=== PATIENT | female | born 1930 | race Caucasian/White ===

== ENCOUNTER 2016-06-03 11:58 | Emergency (ER) | payer MEDICARE ==
[~2016-06-03] VITALS: Ht 170.2 cm; Wt 53.6 kg
[~2016-06-03 11:58] MED LIST: ASPI-973 PO; ESTR42.52 VG; FELO2.5T8 PO; HYDR-4003 PO; KETO120S3 TP; KTC2C15 TP; LEVO75TA4 PO; LOVA40TA PO; MIRT15TA6 PO; NADO20TA PO
[2016-06-03 12:02] VITALS: BP 129/48; PULSE 70; RESP 10; O2SAT 100
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
--- NOTE | 2016-06-03 12:47 | DRSVH ---
PROCEDURE: X-RAY LEFT FOOT COMPLETE, MINIMUM THREE VIEWS ([id number]) INDICATIONS: pain TECHNIQUE: 3 views of the foot were acquired. COMPARISON: None. FINDINGS: Bones: Diffuse osteopenia is present. No fractures or dislocations. No suspicious bony lesions. Soft tissues: No tibiotalar joint effusion. Achilles tendon appears normal. IMPRESSION: No acute fracture. No osseous lesion. If clinical suspicion and/or symptoms persist, fur ther assessment with repeat plainfilms, or advanced imaging (e.g., CT, MRI, or bone scan) may be help ful for further assessment. Dictated by: Sunita Vasquez M.D. on 06/03/2016 at 12:45 Approved by: Sunita Vasquez M.D. on 06/03/2016 at 12:45
[2016-06-03] MEDS ORDERED: NAPR220C16 PO ×2 (13:37→13:46)
[2016-06-03 13:53] VITALS: BP 112/61; PULSE 58; RESP 16; O2SAT 100
== END 2016-06-03 13:37 | disposition home or self-care (01) ==
LOC: SED 11:58
DX: M72.2 Plantar fascial fibromatosis (principal); I10 Essential (primary) hypertension; E78.5 Hyperlipidemia, unspecified; K21.9 Gastro-esophageal reflux disease without esophagitis; Z79.82 Long term (current) use of aspirin; Z88.2 Allergy status to sulfonamides; Z88.5 Allergy status to narcotic agent

== ENCOUNTER 2016-06-12 00:11 | Day surgery (SDC) | payer MEDICARE ==
[~2016-06-12] VITALS: Ht 167.6 cm; Wt 56.2 kg
[~2016-06-12 00:11] MED LIST changes: +NAPR220C16 PO
[2016-06-12] MEDS ORDERED: diphenhydrAMINE 25 mg Capsule PO PRN (08:00)
[2016-06-12] MEDS ORDERED: TACR100O2 TP (08:00)
[2016-06-12] MEDS ORDERED: FUR20 PO (08:00)
[2016-06-12] MEDS ORDERED: FLUT15.88 NS (08:00)
[2016-06-12] MEDS ORDERED: PROTOPIC 0.1% TOPICAL (08:02)
[2016-06-12] MEDS ORDERED: 0.9% Sodium Chloride 250 ML ONE ×2 (10:54→14:01)
[2016-06-12 11:15] VITALS: BP 110/55; PULSE 77; RESP 16
[2016-06-12 11:37] VITALS: BP 113/59; PULSE 70; RESP 16
[2016-06-12 14:21] VITALS: BP 101/51; PULSE 58; RESP 16
[2016-06-12 14:40] VITALS: BP 104/51; PULSE 57; RESP 16
[2016-06-12 16:50] VITALS: BP 107/55; PULSE 54; RESP 16
--- NOTE | 2016-06-12 19:33 | NUR ---
Medication Clarification/ Blood Transfusion: Patient slightly forgetful. When reviewing her home medication she stated that she recently had some stopped and wasn't sure if she was to continue with her Furosemide. She was recently seen in office by Dr. Armendariz. Dr. Armendariz's office called and spoke with his nurse JODY Davidson. New orders received to instruct patient to - continue her Furosemide until her swelling to her legs has stopped - Stop her Naproxen - See Dr. Armendariz in office on 06/15/16 - She will be contacted regarding a GI consult and labs that need to drawn prior to her appointment. Tolerated ordered 2 units of blood without incident. Ordered post H&H lab drawn. Stated understanding of discharge instructions. Discharged home in stable condition. Patient brought down to main entrance via wheelchair. She will drive herself home.
== END 2016-06-12 23:59 | disposition home or self-care (01) ==
LOC: MOCO 00:11
PROVIDERS: ATTEND Internal Medicine
DX: D50.9 Iron deficiency anemia, unspecified (principal); R06.09 Other forms of dyspnea; F32.9 Major depressive disorder, single episode, unspecified; Z79.82 Long term (current) use of aspirin; Z79.890 Hormone replacement therapy
CPT/HCPCS: 36415; 36430; 85014; 85018; 86922; J7050; P9021

== ENCOUNTER 2016-08-04 07:49 | Day surgery (SDC) | payer MEDICARE ==
[~2016-08-04] VITALS: Ht 167.6 cm; Wt 55.7 kg
[~2016-08-04 07:49] MED LIST changes: +FLUT15.88 NS; +FUR20 PO; +PROTOPIC 0.1% TOPICAL
[2016-08-04] MEDS ORDERED: diphenhydrAMINE 25 mg Capsule PO PRN (08:00)
[2016-08-04 10:25] VITALS: BP 113/64; PULSE 63; RESP 16
[2016-08-04 10:40] VITALS: BP 100/45; PULSE 61; RESP 16
[2016-08-04 13:15] VITALS: BP 119/60; PULSE 57; RESP 16
[2016-08-04 13:45] VITALS: BP 112/49; PULSE 56; RESP 16
[2016-08-04 16:19] VITALS: BP 132/62; PULSE 60; RESP 16
--- NOTE | 2016-08-04 17:53 | NUR ---
Transfusion Patient arrived to unit by wheelchair, pushed by security. IV initiated. Type and cross sent for 2 units. Premedicated as ordered. Both units transfused without adverse reaction. Patient ate all meals during transfusion, and requested to stay for dinner. Assisted to bathroom when needed. Will transport to private vehicle when finished eating. Addendum: 08/04/16 at 1820 by SARAH ALVARADO RN Transported by wheelchair to private vehicle with her belongings.
== END 2016-08-04 23:59 | disposition home or self-care (01) ==
LOC: MOCO 07:49
PROVIDERS: ATTEND Nurse Practitioner
DX: D50.9 Iron deficiency anemia, unspecified (principal)
CPT/HCPCS: 36415; 36430; 85014; 85018; 86922; J7050; P9021

== ENCOUNTER 2016-08-31 01:15 | Day surgery (SDC) | payer MEDICARE ==
[~2016-08-31] VITALS: Ht 170.2 cm; Wt 54.0 kg
[2016-08-31 08:37] VITALS: BP 121/49; PULSE 64; RESP 18; O2SAT 99
[2016-08-31] MEDS ORDERED: diphenhydrAMINE 25 mg Capsule PO ONE (09:00)
[2016-08-31 10:08] VITALS: BP 108/45; PULSE 64; RESP 18
[2016-08-31 12:21] VITALS: BP 107/51; PULSE 64; RESP 18
[2016-08-31 12:34] VITALS: BP 110/51; PULSE 70; RESP 18
[2016-08-31 15:10] VITALS: BP 117/58; PULSE 70; RESP 18
--- NOTE | 2016-08-31 15:33 | NUR ---
2 unit prbc pt premedicated with benadryl as ordered 2 units prbc infused over aprox 2.5hr each; pt tolerated well; vss; no adverse s/s post h/h = 10.2/32.4; results faxed to PCP pt escorted on/off unit with daughter
== END 2016-08-31 23:59 | disposition home or self-care (01) ==
LOC: MOCO 01:15
PROVIDERS: ATTEND Nurse Practitioner
DX: D50.0 Iron deficiency anemia secondary to blood loss (chronic) (principal)
CPT/HCPCS: 36415; 36430; 85014; 85018; 86922; J7050; P9021

== ENCOUNTER 2016-09-03 12:46 | Day surgery (SDC) | payer MEDICARE ==
[~2016-09-03] VITALS: Ht 170.2 cm; Wt 52.2 kg
[~2016-09-03 12:46] MED LIST changes: +0.9% Sodium Chloride 1,000 ML IV SCH; +Sodium Chloride LOK Flush 10 mL Syringe IV PRN; +fentaNYL-PF 50 mCg/mL 2 mL Inj IVPUSH PRN
[2016-09-03 13:15] VITALS: BP 129/67; PULSE 62; RESP 16; O2SAT 98
[2016-09-03] MEDS ORDERED: FERR-83 PO (13:20)
[2016-09-03 15:06] VITALS: BP 96/45; PULSE 67; RESP 14; O2SAT 100
[2016-09-03 15:17] VITALS: BP 103/50; PULSE 79; RESP 14; O2SAT 98
[2016-09-03 15:37] VITALS: BP 115/53; PULSE 58; RESP 12; O2SAT 98
[2016-09-03] MEDS ORDERED: 0.9% Sodium Chloride 1,000 ML IV ONE (15:59)
--- NOTE | 2016-09-03 20:46 | ENDO ---
[address] [address] ENDOSCOPY PROCEDURE PATIENT: CASSIE BRAY : 1930 MR#: [id number] ADMIT: 09/03/2016 JOB ID: [id number] PRIMARY PROVIDER: BECKY Bagley. PROCEDURE: Esophagogastroduodenoscopy with biopsy and a colonoscopy with biopsy and Lizette ink tattoo placement. INDICATIONS: An 86-year-old female with iron deficiency anemia. EQUIPMENT: GIF H 190. SEDATION: 1. 5 mg Versed. 2. 100 mcg fentanyl. COMPLICATIONS: None identified. BOWEL PREPARATION: Fair, adequate exam. PROCEDURE INFORMATION: After the risks and benefits were explained, written and verbal informed consent was obtained. The patient was brought into the endoscopy suite and placed into the left lateral decubitus position. Sedation was achieved using the above-stated medications with the addition of oxygen via nasal cannula. The scope was introduced into the mouth through the bite block and advanced to the second portion of the duodenum. The scope was slowly withdrawn to carefully examine the mucosa for any defects or lesions. Retroflexed views were accomplished in the stomach. The stomach was decompressed. The scope removed from the patient who tolerated the procedure well. The patient was then turned around. A digital rectal examination accomplished. No significant anorectal pathology appreciated. The scope was introduced into the rectum and advanced under direct visualization to approximately the hepatic flexure distal ascending colon. We encountered a circumferential ulcerated mass lesion. The scope was in essence hubbed to reach this level, and it did not appear as though I had the ability to advance beyond this lesion. It was biopsied, and the mucosa just distal to the lesion was tattooed with approximately 2 cc of Lizette ink. The scope was then slowly withdrawn to carefully examine the mucosa for any other defects or lesions. Multiple direct views were made through the dentate line. The colon was decompressed. The scope removed from the patient who tolerated the procedure well. FINDINGS: 1. Duodenum: No pathology appreciated from the bulb through to the second portion. A biopsy was taken in that we started with this examination to exclude the remote possibility of celiac. 2. Stomach: The patient had a mild diffuse gastropathy. No focal lesions. No ulcers or outlet obstruction. Biopsy from the stomach was taken for exclusion of Helicobacter or any other pathology. Retroflexed views of the LES were otherwise unremarkable. 3. Esophagus: The squamocolumnar junction correlated with the top of the gastric folds. The GEJ was at about 41 cm from the incisors. No acute erosive changes. No strictures. No mass lesions. 4. Colon: There was a circumferential ulcerated mass lesion in the distal ascending colon. I suspect we were quite close to the hepatic flexure. All of the endoscope was introduced in order to achieve this depth. We got three excellent bites for histopathology and placed a tattoo just distal to the lesion as described above. Otherwise, I did not appreciate any colonic pathology throughout. There was some diverticulosis in the left colon. Moderate internal hemorrhoids were noted on direct views. ENDOSCOPIC DIAGNOSES: 1. Mild gastropathy. 2. Otherwise visually unremarkable esophagogastroduodenoscopy. 3. Right colon mass lesion. 4. Diverticulosis. 5. Hemorrhoids. RECOMMENDATIONS: 1. CT scan is arranged. 2. CEA level is requested. 3. Surgery and oncology consultations are additionally requested.
--- NOTE | 2016-09-05 16:40 | PATH ---
SURGICAL PATHOLOGY Attending Physician:Liban Del Cid CASE STATUS: Signed Out PATIENT NAME: CASSIE BRAY PID: [id number] : 1930 DATE COLLECTED:09/03/2016 00:00 SPECIMEN: 1: Duodenum, Biopsy 2: Gastric, Biopsy 3: Colon, Biopsy CLINICAL HISTORY: 1. DUODENUM BX 2. GASTRIC BX 3. HEPATIC FLEXURE MASS BX FINAL DIAGNOSIS: 1.DUODENUM, BIOPSY: DUODENAL MUCOSA WITH NO DIAGNOSTIC ABNORMALITY. Negative for active inflammation, features of sprue, dysplasia, and malignancy. 2.GASTRIC BIOPSY: PORTIONS OF GASTRIC BODY-TYPE MUCOSA WITH CHRONIC GASTRITIS. No definite H. pylori organisms identified by H&E stain. Immunohistochemistry studies pending; results will be reported as an addendum. Negative for intestinal metaplasia, dysplasia, and malignancy. 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 IMMUNOHISTOCHEMISTRY STUDIES PENDING; RESULTS WILL BE REPORTED AN ADDENDUM. ICD10 NOTE: Part 3. This case was reviewed by my colleague, Dr. Shilpa Jon, who concurs with the above interpretation. Results regarding the hepatic flexure mass biopsy were communicated to Lenard Barker, on behalf of Dr. Sterling, at approximately 2:30 p.m. on 09-05-16. GROSS DESCRIPTION: The specimen is received in three formalin filled containers labeled with the patient's name. 1). The specimen is sublabeled "duodenum" and consists of a 0.3 x 0.3 x 0.3 CM portion of tissue which is entirely submitted in cassette 1A. 2). The specimen is sublabeled "gastric" and consists of a 0.2 x 0.2 x 0.1 CM portion of tissue which is entirely submitted in cassette 2A. 3). The specimen is sublabeled "hepatic flex mass" and consists of 2 portions of tissue which aggregate to 0.3 x 0.2 x 0.2 CM. The specimen is entirely submitted in cassette 3A. 09/04/[address] [facility] MICRO DESCRIPTION: See diagnosis. ICD-9 CODES: CPT CODES: 1: 53867 2: 32613, 56161 3: 01560, 42407, 38469, 48843, 25708, 23751 PROCEDURE/ADDENDA: Immunohistochemistry SPI Interpretation {Not Entered} Results-Comments This is an addendum to report the results of immunohistochemistry. 2.GASTRIC, BIOPSY:NEGATIVE FOR HELICOBACTER ORGANISMS BY IMMUNOHISTOCHEMISTRY. A control stain showed appropriate reactivity. 3.HEPATIC FLEXURE MASS, BIOPSY:Immunohistochemical stains were performed for mismatch repair protein expression evaluation and immunophenotype. A control stain showed appropriate reactivity. RESULTS: Synaptophysin: Negative Chromogranin: Negative Calretinin: Variable nuclear and cytoplasmic reactivity. MLH1: Loss of nuclear expression. MSH2: Intact nuclear expression. MSH6: Intact nuclear expression. PMS2: Loss of nuclear expression. Background nonneoplastic tissue/internal control with intact nuclear expression. 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 Loss of nuclear expression of MLH1 and PMS2: testing for BRAF gene mutation will be performed and the results reported as an addendum. (The presence of a BRAF V600E mutation and/or MLH1 methylation suggests that the tumor is sporadic and germline evaluation is probably not indicated; absence of both MLH1 methylation and of BRAF V600E mutation suggests the possibility of Harris syndrome, and sequencing and/or large deletion/duplication testing of germline MLH1 may be indicated)* * There are exceptions to the above IHC interpretations. These results should not be considered in isolation, and clinical correlation with genetic counseling is recommended to assess the need for germline testing. * This test was developed and its performance characteristics determined by youwho. It has not been cleared or approved by the U.S. Food and Drug Administration. The FDA has determined that such clearance or approval is not necessary. This test is used for clinical purposes. It should not be regarded as investigational or for research. Electronically Signed Out Shilpa Jon MD Electronically Signed Out Karina Jones MD [facility] [address], [place] [address] Technical component performed at [facility], [address], [place], [address]
== END 2016-09-03 23:59 | disposition home or self-care (01) ==
LOC: END 12:46
PROVIDERS: ATTEND Internal Medicine Gastroenterology
DX: C18.9 Malignant neoplasm of colon, unspecified (principal); K57.30 Diverticulosis of large intestine without perforation or abscess without bleeding; K64.8 Other hemorrhoids; K29.50 Unspecified chronic gastritis without bleeding; D50.0 Iron deficiency anemia secondary to blood loss (chronic); F32.9 Major depressive disorder, single episode, unspecified; Z79.82 Long term (current) use of aspirin; Z79.890 Hormone replacement therapy
CPT/HCPCS: 36415; 43239; 45380; 45381; 82378; 82565; 84520; 99153; G0500; J2250; J3010; J7030

== ENCOUNTER 2016-09-12 11:10 | Inpatient (IN) | payer MEDICARE ==
[2016-09-12] VITALS (8 sets, daily range): BP systolic 140–155; BP diastolic 48–75; PULSE 53–68; RESP 14–17; O2SAT 97–100
[~2016-09-12] VITALS: Ht 170.2 cm; Wt 54.0 kg
[2016-09-12] MEDS: Lactated Ringer's 1,000 ML IV SCH ×3 (05:00→13:05)
[~2016-09-12 11:10] MED LIST changes: -0.9% Sodium Chloride 1,000 ML IV SCH; +Bupivacaine Liposome 1.3% 20 mL Inj INFILTRATE ONE; +Cefotetan Inj 2,000 MG in IV Premix 1 EACH IV ONE; +FERR-83 PO; -FLUT15.88 NS; -NAPR220C16 PO; -Sodium Chloride LOK Flush 10 mL Syringe IV PRN; -fentaNYL-PF 50 mCg/mL 2 mL Inj IVPUSH PRN
[2016-09-12] MEDS ORDERED: Bupivacaine-MPF 0.5% 30 mL Inj INFILTRATE ONE (13:45)
[2016-09-12] MEDS ORDERED: Bupivacaine Liposome 1.3% 20 mL Inj ONE (13:52)
[2016-09-12] MEDS ORDERED: Lactated Ringer's 1,000 ML IV SCH (15:36)
[2016-09-12] MEDS ORDERED: Lactated Ringer's 500 ML IV PRN (15:36)
--- NOTE | 2016-09-12 15:36 | PCM.HPANE ---
Patient Data Surgeon Admitting Provider: Attending Provider:Raymond Desai MD Primary Care Physician:Zoe Sheth Other Provider:Laz Dover Anesthesia Reason for Visit Right Colon Cancer, Liver Mass Ht/WT & BMI Height (Feet): 5 Height (Inches): 7 Weight (Kilograms): 54.02 Body Mass Index 18.00 Allergies Coded Allergies: albuterol (Verified Allergy, Severe, Headache, 08/04/16) Sulfa (Sulfonamide Antibiotics) (Verified Allergy, Mild, 08/04/16) lisinopril (Verified Allergy, Mild, 08/04/16) Past Anesthesia History Anesthesia History: Denies:: Abnormal Airway, Anesthesia Reactions, Difficult Intubation, Fam Anesthesia Reaction, Fam Malignant Hypertherm, Malignant Hyperthermia Diabetes History Hx Diabetes?: No MRSA MRSA: Yes (6 MONTHS AGO, IN one nostril) Medications Blood Thinner: Aspirin Hypertension Medication: No Home Meds Incl Beta Adithya: Yes (nadolol for "head pressure") Active Scripts Hydrocodone-Acetaminophen 5-325 mg 1 Each Tablet1-2 Tablet PO QID PRN For Pain # 4 TABLET Prov:Geraldo Mitchell S DO 09/07/15 Reported Medications Ferrous Sulfate 325 Mg [id number] Mg PO BID 30 Days Ref 0 09/03/16 [Protopic Oint 0.1%] No Conflict Check1 Topical Bid 06/12/16 Furosemide 20 Mg Tab20 Mg PO DAILY 30 Days Ref 0 06/12/16 Mirtazapine 15 Mg [id number] Mg PO HS Ref 0 03/24/15 Lovastatin 40 Mg Lvounn56 Mg PO QDWEVENING MEAL #30 TABLET Ref 0 10/20/14 Levothyroxine 75 Mcg [id number] Mcg PO DAILY Ref 0 10/20/14 Ketoconazole 15 Gm Cream..g.15 Gm TP DAILY 10/20/14 Aspirin 81 Mg [id number] Mg PO DAILY Ref 0 10/20/14 Nadolol 20 Mg [id number] Mg PO HS 30 Days Ref 0 08/03/14 Nadolol 20 Mg [id number] Mg PO QAM 30 Days Ref 0 08/03/14 Estradiol (Estrace)42.5 Gm Cream.appl1 G VG SATURDAY #1 TUBE Ref 0 INSERT 1 GRAM VAGINALLY TWICE A WEEK 08/03/14 Ketoconazole 120 Ml [id number] Ml TP DAILY PRN prn APPLY TOPICALLY EVERY DAY TO AFFECED AREA(S). 08/03/14 Felodipine ER 2.5 Mg Tab.er.24h2.5 Mg PO DAILY 30 Days Ref 0 08/19/13 History History of ENT Problems?: Yes HEENT History: Positive for:: Cataracts (bilateral surgery) Dysphagia (sometimes have to swallow more than once ) Sinus Problem Denies:: Abnormal Airway Difficult Intubation Glaucoma Hearing Problem Denture Type: Full- Upper Teeth Condition: Tooth Decay Inflamed Gums Hx of Heart Problems?: Yes Cardiovascular History: Denies:: AICD Atrial Fibrillation Chest Pain Congestive Heart Failure Hypertension Irregular Heartbeat Pacemaker Peripheral Vascular Valvular Heart Disease (echo 06/2016- ef 55-60%) Other Cardiac History: past hx of leukopenia and thrombocytopenia. Hx of Respiratory Problem?: Yes Respiratory History: Positive for:: Cough Dyspnea (sob on exertion- can not walk flight of stairs- can walk flat ) Pneumonia (hx of) Denies:: Asthma Emphysema Hemoptysis Oxygen Administration Pulmonary Embolism Tuberculosis Use of C-PAP Machine Use of Inhalers / NEBS (could not tolerate nebulizer- ) Other Resp Pertinent History: hx of pulmonary infiltrates- being monitored Hx Neurologic Problems?: Yes Neurological History: Positive for:: Dementia (some memory issues) Dizziness (due to the anemia) Headaches ("pounding in head all the time") Denies:: CVA Multiple Sclerosis Parkinson's Disease Seizures Hx of GI Problems?: Yes Other GI Pertinent History: colon mass at hepatic flexure current admission problem Hx of Problems?: Yes Genitourinary History: Denies:: Kidney Stones Urinary Tract Infection Other Pertinent History: has hx of fecal incontinence- "sticky" unaware that she is having this, some urinary leakage as well. Female Hx: Positive for:: Problems with Breasts? Denies:: Currently (hysterectomy) Skin History: Denies:: History Skin Disorders? Pressure Ulcers Hx Musculoskeletal Problems?: Yes Musculoskeletal History: Positive for:: Degenerative Joint Musculoskeletal Trauma (HX RT SHOULDER IMPINGEMENT) Denies:: Back Injury Fibromyalgia Joint Replacement Myasthenia Gravis Osteoarthritis Rheumatoid Arthritis Systemic Lupus Hx of Psycho/Social Problems?: Yes Psycho Social History: Positive for:: Anxiety Hx Depression Hx Surgeries?: Yes (BLADDER,HYESTERECTOMY,GALLBADDER) Hx Any Other Health Problems?: Yes Other History: Positive for:: Cancer (colon current admission problem) Thyroid Disease (on medication) Denies:: Endocrine Disease Hospitalization History Blood Transfusions: Positive for:: Accept Blood Products? Blood Transfusions (last blood transfusion here end of august) Denies:: Blood Transfuse Reaction Hx Diabetes: No Hx Alcohol Use: NoHx Substance Use: No Smoking Status: Never Smoker Have You Smoked inLast 12 mo: No Stop/Bang P-Blood Pressure: treated: No B- Body Mass Index > 35 kg/m2: No A- Age over 50: Yes N- Neck Large Circumference: No G- Gender Male: No Risk Assessment Category Category 1A: Patient has history of documented sleep apnea, and HAS NOT received any narcotic, sedative or anesthesia administration during this stay. Category 1B: Patient has history of documented sleep apnea, and HAS received any narcotic , sedative or anesthesia administration during this stay Category 2: Patient has SUSPECTED Obstructive Sleep Apnea, and HAS received any narcotic , sedative or anesthesia administration during this stay. Category 3: Patient has SUSPECTED Obstructive Sleep Apnea and HAS NOT received narcotic, sedative or anesthesia administration during this stay. Category 4: Outpatient in Procedural Areas with known sleep apnea or who screen positive for High Risk via the STOP/BANG questionnaire. Exam Exam General Appearance: Alert, Oriented X3, Cooperative, No Acute Distress HEENT/AIRWAY: MP 2 Lungs: Clear to Auscultation Heart: Exam Unremarkable Plan Impression Patient chart reviewed, patient interviewed and anesthestic plan with risks, benefits, and alternatives discussed, and informed consent obtained. ASA Physical Status: ASA3 Severe Disease (severe anemia requiring transfusion) Anesthetic Plan: GA Bene/Risks/Altern/Consents: Yes HP Complete Prior to Induction: Yes Luiz Humphrey MD Sep 12, 2016 11:19
[2016-09-12] MEDS ORDERED: fentaNYL-PF 50 mCg/mL 2 mL Inj IVPUSH PRN (15:40)
[2016-09-12] MEDS ORDERED: EPHEDrine Sulfate 50 mg/mL Inj IVPUSH PRN (15:40)
[2016-09-12] MEDS ORDERED: HYDROmorphone 1 mg/mL Inj IVPUSH PRN (15:40)
[2016-09-12] MEDS ORDERED: MetoCLOpramide 5 mg/mL 2 mL Inj IVPUSH PRN ×2 (15:40→16:30)
[2016-09-12] MEDS ORDERED: Phenylephrine 10,000 mCg/mL Inj IVPUSH PRN (15:40)
[2016-09-12] MEDS ORDERED: Dexamethasone 4 mg/mL Inj IVPUSH PRN (15:40)
[2016-09-12] MEDS ORDERED: Ondansetron 2 mg/mL 2 mL Inj IVPUSH PRN ×2 (15:40→16:30)
--- NOTE | 2016-09-12 16:14 | PCM.SURGOP ---
Surgical Operative Report Date of Service: Sep 12, 2016 Pre Operative Diagnosis Right colon cancer, liver lesion Post Operative Diagnosis Same Procedure: Laparoscopic right hemicolectomy with anastomosis, laparoscopic liver biopsy Surgeon and Pet Crematory Worker: Surgeon: Raymond Desai MD Assistants: Rajendra Hernandez MD PGY-3 Indication for Procedure 86-year-old woman who has had fairly severe iron deficiency anemia, and has required 6 units of packed red blood cells of the past several months. She underwent colonoscopy by Dr. Sterling, which demonstrated a nearly obstructing friable lesion in the ascending colon, which could not be traversed with the colonoscope. 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 She had a CT of the chest, abdomen and pelvis which demonstrated a small indeterminate hypodensity in the left hepatic lobe, thickening of the ascending colon near the cecum, with probable lymph node positivity in the mesocolon. She underwent preoperative nutritional supplementation according to the [facility] protocol. She did not undergo bowel preparation. Her preoperative albumin was 3.5. After discussion of risks and benefits, she agreed to proceed with laparoscopic right hemicolectomy and liver biopsy. Findings: The liver lesion did not look like metastasis, as there was a broad flat slightly irregular density on the capsule of the liver. There was what appeared to be a positive lymph node along the ileocolic artery, which was resected. Procedure Details After smooth induction of general endotracheal anesthesia, she was placed in the supine position with both arms tucked. A Sanchez catheter was placed. She was prepped and draped in wide sterile fashion. A procedural pause was performed according to the SCOAP checklist, and all were found to be in agreement. A curvilinear infraumbilical incision was made. Dissection was carried down until the midline fascia was incised vertically and the perineal cavity was entered without difficulty. A June trocar was placed and pneumoperitoneum was established. Inspection revealed no evidence of carcinomatosis. The liver had a visible abnormality on the capsule of the left hepatic lobe, but this lesion was fairly broad and flat, and did not look like a typical metastasis. 5 mm ports were placed under visualization, one in the midline above the symphysis pubis, and another in the left upper quadrant. The right colon was retracted and the tumor as well as the Lizette ink tattoo were visualized. There was an abnormal lymph node in the right colon mesentery. Using the LigaSure, the hepatic flexure of the colon was taken down.once this was done, the cecum was elevated until the ileocolic vascular arcade was identified. The peritoneum was incised. The ileocolic artery and vein were able to be . Using 5 mm hemoclips, the artery and vein were doubly clipped and divided. This was done at the root of the mesentery, and there was an abnormal lymph node along the ileocolic artery which was included with the specimen. The remainder of the dissection was done from lateral to medial. Dissection was continued along the right white line of Toldt. The right ureter was visualized and easily preserved. The right colon was mobilized medially until the ileocolic mesenteric dissection was reached. The mesentery was skeletonized up to the terminal ileum approximately 10 cm from the ileocecal valve. Mesenteric dissection was continued distally until the proximal transverse colon, just adjacent to the middle colic vessels, which were visualized and preserved. The colon was ready to be exteriorized for transection and anastomosis. Prior to doing that, laparoscopic liver biopsy was performed. Using Metzenbaum scissors, a 3-4 mm segment of the capsular abnormality along the left hepatic lobe was sharply dissected off. This was sent for permanent pathology. Hemostasis was achieved on the liver using electrocautery. A 6 cm transverse incision was made at the level of the umbilicus in the right abdomen. The peritoneal cavity was entered under laparoscopic visualization. A wound protector was placed. The right colon was exteriorized through that incision. A EZ 75 mm stapler with a blue load was used to transect the terminal ileum, 10 cm from the ileocecal valve. Similarly , a EZ 75 mm stapler with blue load was used to transect the proximal transverse colon. The right colon was sent for permanent pathology. A side-to- side, functional end-to-end stapled anastomosis was performed. This was done with another firing of the EZ 75 mm stapler with a blue load along the antimesenteric aspect of the transverse colon and terminal ileum. The enterotomies were closed with a firing of the TA 30 mm stapler with a blue load. 3-0 silk Lembert sutures were used to oversew the staple lines, and to reinforce the crotch of the anastomosis. The mesenteric defect was wide, and was not closed. The anastomosis was evaluated by milking gas and enteric contents across the anastomosis, without evidence of leak. The anastomosis was returned to the peritoneal cavity. The wound protector was removed, and gloves and instruments were changed. The fascia of the right transverse incision was closed using running looped 0 PDS sutures 4, 2 sutures on the posterior rectus sheath and transversus abdominis muscle, and 2 sutures on the anterior rectus sheath and external oblique muscle. Under laparoscopic visualization, the anastomosis was inspected, there was no intra-abdominal bleeding, and the liver biopsy site was hemostatic. The 5 mm ports were removed under visualization. The fascia of the umbilical port site was closed using an 0 Vicryl suture in a [id number]. The skin incisions were closed using running 4-0 Monocryl subcuticular stitches. Dermabond was applied as a dressing. At the end of the case all needle and sponge counts were correct 2. The patient was awakened from anesthesia without difficulty, and taken to the recovery room in satisfactory condition, having tolerated the procedure well. Complications There were no periprocedural complications identified. Surgical Specimen Removed: Yes Specimen sent to Pathology: Yes Surgical Specimen description: Right colon. Liver biopsy. Anesthetic Plan: GA Grafts, Implants: None Output, Estimated Blood Loss: 20 Blood Administration during barragan: No Drains: None Catheters: Urethral 2 Way Sanchez copies to: Zoe Sheth; Jack Sterling MD, Joshua D MD Sep 12, 2016 16:13
[2016-09-12] MEDS ORDERED: Heparin 5,000 Unit/mL Inj SUBQ SCH (16:30)
--- NOTE | 2016-09-12 16:43 | PCM.ANEP1 ---
Post Anesthesia PACU Phase 1 Assessment Vital Signs Vital Signs Date Time Temp Pulse Resp B/P Pulse Ox O2 Delivery O2 Flow Rate FiO2 09/12/16 16:36 55 14 141/48 97 Room Air 09/12/16 16:25 55 15 150/51 98 Room Air 09/12/16 16:21 36.5 53 15 155/56 100 Room Air 09/12/16 12:29 36.2 68 16 140/63 97 Room Air Level of Alertness: Sleepy, easy to arouse CLAROS's with Equal Strength: Yes Pain: No Nausea or Vomiting: No CV Function & Hydration Stable: Yes Airway Device: Oxygen Delivery: Room Air Lungs: Clear to Auscultation Dermatome Level: Full Sensation PACU Phase 2 Assessment Complications: No Patient Instructions Provided: N/A Luiz Humphrey MD Sep 12, 2016 16:43
[2016-09-12 17:08] LABS: APPEARANCE,URINE CLEAR (CLEAR,HAZY); COLOR,URINE YELLOW (YELLOW); OCCULT BLOOD,URINE NEGATIVE (NEGATIVE); PH,URINE 5.5 (5.0-8.0); UROBILINOGEN,URINE NORMAL (NORMAL)
[2016-09-12 17:27] LABS: BASOPHILS % (AUTO) 0.2 % (0-3); EOSINOPHILS % (AUTO) 0.3 % (0-5); MONOCYTES % (AUTO) 11.1 % (4-12); Mean Corpuscular Hemoglobin 26.7 pg (27.0-35.0); Mean Corpuscular Volume 87.5 fL (81-100); NEUTROPHILS % (AUTO) 77.8 % (40-74); Platelet Count 126 bil/L (150-400)
[2016-09-12] MEDS ORDERED: Dexamethasone 4 mg/mL Inj ONE (17:28)
[2016-09-12] MEDS ORDERED: Propofol 10,000 mCg/mL 20 mL Inj ONE (17:28)
[2016-09-12] MEDS ORDERED: fentaNYL-PF 50 mCg/mL 2 mL Inj ONE (17:28)
[2016-09-12] MEDS ORDERED: EPHEDrine/NS 5 mg/mL 5 mL Syringe ONE (17:28)
[2016-09-12] MEDS ORDERED: Ondansetron 2 mg/mL 2 mL Inj ONE (17:28)
[2016-09-12] MEDS ORDERED: Phenylephrine/NS-PF 100 mCg/mL 5 mL Syringe IVPUSH ONE (17:28)
[2016-09-12] MEDS ORDERED: Rocuronium 10 mg/mL 5 mL Inj ONE (17:28)
[2016-09-12] MEDS: Dextrose 5% Lactated Ringer's 1,000 ML IV SCH (18:07)
[2016-09-12] MEDS: HYDROmorphone 0.5 mg/0.5 mL iSecure Syringe IVPUSH PRN ×2 (18:38→19:29)
--- NOTE | 2016-09-12 18:52 | NUR ---
Arrival to Floor Patient arrives to floor from PACU with SCDs in place. High flow oxygen applied to patient per orders, ordered IV fluids hung. Patient denies pain, surgical sites well approximated, cantu catheter draining to gravity. Patient somewhat slow to answer questions but able to respond. Care is ongoing.
[2016-09-12] MEDS ORDERED: PROTOPIC 0.1% TOPICAL PRN (19:35)
[2016-09-12] MEDS: Acetaminophen IV 1,000 MG in IV Premix 1 EACH IV SCH (21:27)
[2016-09-13] VITALS (8 sets, daily range): BP systolic 102–132; BP diastolic 48–61; PULSE 49–64; RESP 16–18; O2SAT 97–100
[2016-09-13] MEDS: Heparin 5,000 Unit/mL Inj SUBQ SCH ×3 (00:22→16:03)
[2016-09-13] MEDS: Acetaminophen IV 1,000 MG in IV Premix 1 EACH IV SCH ×4 (02:15→21:30)
--- NOTE | 2016-09-13 05:27 | NUR ---
Pain Pt reports 8/10 surgical pain at beginning of shift, 1mg IV Dilaudid given x1 with good results, besides scheduled IV Tylenol no further pain meds given and pt denies any pain. BT present.
[2016-09-13 05:31] LABS: BASOPHILS % (AUTO) 0.1 % (0-3); EOSINOPHILS % (AUTO) 0 % (0-5); MONOCYTES % (AUTO) 27.5 % (4-12); Mean Corpuscular Hemoglobin 26.6 pg (27.0-35.0); Mean Corpuscular Volume 88.5 fL (81-100); NEUTROPHILS % (AUTO) 68.4 % (40-74); Platelet Count 127 bil/L (150-400)
[2016-09-13] MEDS: FELODIPINE 2.5 MG PO SCH (08:37)
[2016-09-13] MEDS: Dextrose 5% Lactated Ringer's 1,000 ML IV SCH (09:08)
--- NOTE | 2016-09-13 09:08 | NUR ---
NUTRITION ASSESSMENT: ASSESS:86 YO female admitted following laparoscopic right hemicolectomy and liver biopsy. Patient with fairly severe iron deficiency anemia and has required 6 units of packed red blood cells of the past several months. She underwent colonoscopy, which demonstrated a nearly obstructing friable lesion in the ascending colon, which could not be traversed with the colonoscope. 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 She had a CT of the chest, abdomen and pelvis which demonstrated a small indeterminate hypodensity in the left hepatic lobe, thickening of the ascending colon near the cecum, with probable lymph node positivity in the mesocolon. She underwent preoperative nutritional supplementation according to the [facility] protocol. This morning, she is doing well, reporting minimal pain, no nausea. Diet has been advanced to full liquids, with Impact Advanced Recovery supplement added to all trays. PMHx:Leukopenia, thrombocytopenia, memory problems, dysphagia, MRSA, hypothyroid, pulmonary infiltrates. DIET:Full liquids, including Impact Advanced Recovery supplement, per [facility] protocol. LABS: Reviewed. Cr 0.52, Glu 159, Ca 8.0. MEDICATIONS: Reviewed. MiraLax, Synthroid, Remeron. NUTRITION FOCUSED PHYSICAL ASSESSMENT: GI symptoms / stool: No BM reported.Dav: 17. Skin Integrity: Skin is very pale, some lower extremity edema noted. ANTHROPOMETRICS: Current Wt: 53.5 kgBMI: 18.5 kg/m2.Admit weight: 54.02 kg. IBW: 61.4 kg (87.2% IBW) ESTIMATED NEEDS (GI SURGERY, UNDERWEIGHT): Calories: 1605 - 1873 kcal (30 - 35 kcal / kg BW) Protein: 64 - 80 g protein (1.2 - 1.5 g / kg BW) NUTRITION DIAGNOSIS: 1)Increased nutrient needs related to GI surgery, as evidenced by SCOAP protocol in place with supplementation of Impact Advanced Recovery. INTERVENTION: 1) Continue Impact Advanced Recovery all trays. MONITOR/EVALUATE: Diet advance / tolerance, PO intake, labs, GI/nutrition status. Follow up per moderate nutrition risk guidelines.
--- NOTE | 2016-09-13 11:59 | PCM.PNSURG ---
Subjective Date of Service: Sep 13, 2016 Visit Information: Reason for Visit Right Colon Cancer, Liver Mass Surgery/Surgery Date Post-Op Day # Date of Admission: Sep 12, 2016 at 17:27 Hospital Day # Subjective: No acute overnight events Patient reports abdomen is sore, but overall she has minimal pain Denies nausea or vomiting Does not yet feel hungry Did not ambulate yesterday Slept well. Objective Vital Sign- Last 8 Hours Date Time Temp Pulse Resp B/P Pulse Ox O2 Delivery O2 Flow Rate FiO2 09/13/16 08:45 Supplement Oxygen 09/13/16 08:39 60 09/13/16 08:30 36.5 49 18 116/61 100 Nasal Cannula 2.00 09/13/16 06:06 36.5 62 18 121/58 97 Nasal Cannula 2.00 Intake and Output- Last 8 Hour 09/13/16 Cumulative From/Thru 07:00 09/07/16 09:34 - 09/13/16 06:04 Intake Total 832 ml 1882 ml Output Total 800 ml 1190 ml Balance 32 ml 692 ml Intake Oral 50 ml 50 ml IV Total 782 ml 1832 ml Output Urine Total 800 ml 1150 ml Estimated Blood Loss 40 ml # Bowel Movements 0 0 General: Alert, Cooperative, No Acute Distress Lungs: Normal Air Movement Abdomen: Soft, Appropriately tender, Non-distended, Other (Lap trocar sites x3 c/d/i. R mid abdomen incision c/d/i. Dressed with dermabond. ) Neuro: Grossly Neurologically Intact Result Diagram: 09/13/16 0440 09/13/16 0440 Assessment & Plan Impression POD#1 s/p laparoscopic right hemicolectomy. No issues in the immediate post- operative setting. Problems: Plan Neuro: Continue IV APAP today, oxycodone PRN PO. HM IV for breakthrough CV/Pulm: Encourage inspiratory spirometry. Home ASA, statin, felodipine, and nadolol. Holding lasix for now. GI: Full liquid diet until ROBF. Daily bowel regimen with miralax. Renal: Trial of void today. Heme/ID: No need for antibiosis. Increase in WBC likely post-op inflammatory response. Endo: Home levothyroxine Activity: Ambulate in halls TID, please. PT/OT consult if needed. Prophylaxis: SQH. Dispo: Floor. Dread Hernandez MD Sep 13, 2016 11:59
[2016-09-13] MEDS: Polyethylene Glycol (PEG) 17 Gm Powder PO SCH (12:19)
[2016-09-13] MEDS ORDERED: Glucose 40% Oral Gel 15 Gm Tube PO PRN (12:35)
--- NOTE | 2016-09-13 13:46 | NUR ---
Spiritual care: routine pt declined routine offering of synagogue visitor, but was appreciative of spiritual care support as she reflects on diagnosis (what is known and what is still unknown, as she put it) and her approach to care. She shared that her son had bowel surgery with complications 4 years ago, she reflected about how this experience may shape her approach to care and treatment. Pt is "not practicing now" synagogue and expressed satisfaction in her care at [facility]. She described her coping with hospital stay--managing pain, waiting for news and dealing with different tv channels/remote systems. spiritual care to follow as needed.
--- NOTE | 2016-09-13 14:03 | NUR ---
Social Work- Multi-Disciplinary Rounds/ Initial Assessment Data: See Initial Assessment. Pt is 86 year old female admitted 09/12/16 for right colon cancer, liver mass per H&P. Pt's insurance is [facility]. Pt's PCP is BECKY Bagley. Pt's NOK/DPOA is Lucrecia Fuchs, . Pt's readmit risk score is 5 high risk. Surgery is primary on this pt. Per rounds with improvement lead and UR RN pt is POD 1 chandra colectomy. SW met with pt at bedside regarding discharge plan. SW role explained. Pt alert and oriented x3. Pt resides in Independent Living at [facility] where she is independent at baseline. Pt uses no DME and continues to drive. Pt's capacity for self care was assessed. Pt receives meals at [facility] but she also has food in her room to cook and often cooks breakfast for herself independently. Pt drives herself to get her groceries and to her doctors appointments. [facility] provides housekeeping for pt as well but she also cleans her own apartment. Pt moved into her apartment with assistance from her family. Pt's daughter Lucrecia is DPOA and designated support person. Pt provided verbal consent for INSTITUTE DIRECTOR to talk to Lucrecia. Lucrecia assists pt with logistical efforts such as selling her old home. Lucrecia also provides pt's weekly medications in a weekly pill organizer. Pt identifies Lucrecia and her two other children as an excellent support for herself. Based on the above, pt demonstrates good capacity for self care at this time. Pt has no HH history and no SNF history. Pt has no LTC or VA benefits. SW provided pt with business card and Discharge Planning Checklist. Instructed pt to contact INSTITUTE DIRECTOR by the phone number on the card or whiteboard if INSTITUTE DIRECTOR has needs that are identified in the booklet. Pt agreeable. Pt anticipated to discharge home to [facility] with her daughter to transport via POV pending clinical course. At this time, no SW needs have been ordered. SW will continue to follow. Assessment: Pt who is independent at baseline. Plan: Pt is POD 1. Pt anticipated to discharge home to [facility] with her daughter to transport via POV pending clinical course. At this time, no SW needs have been ordered. SW will continue to follow. ADAM Baum Addendum: 09/13/16 at 1414 by MARTIN LOZANO Amended: Links added.
[2016-09-13] MEDS: Insulin LISPRO 300 Unit/3 mL Inj SUBQ SCH ×3 (14:11→21:09)
--- NOTE | 2016-09-13 16:31 | NUR ---
Blood Glucose Pt FBS prior to lunch was 187. MD notified, order for one time dose of 2 units Lispro. FBS rechecked at 1610 found to be 104. MD notified, no insulin drip order at this time.
[2016-09-13] MEDS ORDERED: 0.9% Sodium Chloride 250 ML ONE (20:46)
[2016-09-14] VITALS (7 sets, daily range): BP systolic 92–128; BP diastolic 50–58; PULSE 57–76; RESP 15–18; O2SAT 97–100
[2016-09-14] MEDS: Heparin 5,000 Unit/mL Inj SUBQ SCH ×3 (00:59→16:51)
[2016-09-14] MEDS: Dextrose 5% Lactated Ringer's 1,000 ML IV SCH ×2 (01:03→14:16)
[2016-09-14] MEDS: Acetaminophen IV 1,000 MG in IV Premix 1 EACH IV SCH ×3 (03:30→16:51)
--- NOTE | 2016-09-14 03:52 | NUR ---
Pain Patient receiving scheduled IV Tylenol for pain management. Stating pain was well controlled with this at beginning of shift. Later on in shift, after getting up to BSC a few times, complained of increase in ABD pain rating it a 9/10. Received Oxycodone PO for breakthrough pain, in addition to scheduled IV Tylenol.
[2016-09-14 06:54] LABS: BASOPHILS % (AUTO) 0.3 % (0-3); EOSINOPHILS % (AUTO) 1.4 % (0-5); MONOCYTES % (AUTO) 31.5 % (4-12); Mean Corpuscular Hemoglobin 26.6 pg (27.0-35.0); Mean Corpuscular Volume 88.8 fL (81-100); NEUTROPHILS % (AUTO) 54.6 % (40-74); Platelet Count 151 bil/L (150-400)
[2016-09-14] MEDS: Insulin LISPRO 300 Unit/3 mL Inj SUBQ SCH ×4 (08:00→21:43)
--- NOTE | 2016-09-14 08:11 | PCM.PNSURG ---
Subjective Date of Service: Sep 14, 2016 Visit Information: Reason for Visit Right Colon Cancer, Liver Mass Surgery/Surgery Date Post-Op Day # Date of Admission: Sep 12, 2016 at 17:27 Hospital Day # Subjective: Patient woke with diffuse abdominal pain this morning at approx 3:30am. This was improved after PO narcotic administration Otherwise, she is feeling quite well, noting her only complaint at this time is moderate abdominal distention She is tolerating FLD without nausea or vomiting. Voiding. Has been up out of bed but has not yet ambulated. She has not yet passed flatus. Objective Vital Sign- Last 8 Hours Date Time Temp Pulse Resp B/P Pulse Ox O2 Delivery O2 Flow Rate FiO2 09/14/16 05:31 36.6 67 16 103/52 97 Room Air Intake and Output- Last 8 Hour 09/14/16 Cumulative From/Thru 07:00 09/07/16 09:34 - 09/14/16 06:00 Intake Total 628 ml 4207 ml Output Total 1050 ml 3390 ml Balance -422 ml 817 ml Intake Oral 414 ml 1584 ml IV Total 214 ml 2623 ml Output Urine Total 1050 ml 3350 ml Estimated Blood Loss 40 ml # Bowel Movements 0 General: Alert, Cooperative, No Acute Distress Neck: Supple, Full Range of Motion Lungs: Normal Air Movement Heart: Exam Unremarkable Abdomen: Soft, Appropriately tender, Non-distended, Other (laparoscopic trocar incisions c/d/i. R mid abdomen transverse incision c/d/i.) Result Diagram: 09/14/16 0625 09/14/16 0625 Assessment & Plan Impression POD#2 s/p laparoscopic right hemicolectomy. Convalescing appropriately at this time. Awaiting ROBF. Problems: Plan Neuro: Continue IV APAP today, 2 more doses then transition to PO APAP. Oxycodone PRN PO. HM IV for breakthrough. Please attempt to limit narcotic administration. CV/Pulm: Encourage inspiratory spirometry. Home ASA, statin, felodipine, and nadolol. Holding lasix for now. GI: Full liquid diet until ROBF. Daily bowel regimen with miralax. PRN antiemetics. Renal: Voiding. Cr wnl. Heme/ID: No need for antibiosis. Leukocytosis resolved. Hct stable 25%. Endo: Home levothyroxine. Correctional insulin available in context of POD#1 blood sugar >180 Activity: Ambulate in halls TID, please. PT/OT consult today. Prophylaxis: SQH. Dispo: Floor. Dread Hernandez MD Sep 14, 2016 08:11
[2016-09-14] MEDS: FELODIPINE 2.5 MG PO SCH (10:53)
[2016-09-14] MEDS: Polyethylene Glycol (PEG) 17 Gm Powder PO SCH (12:18)
--- NOTE | 2016-09-14 15:47 | NUR ---
BP/Headache BP meds held this morning due to low BP 96/56. Pt getting BP meds for c/o headache. New parameters to hold if SBP < 100. Pt tolerated oxy 5-10mg to supplement.
--- NOTE | 2016-09-14 16:34 | NUR ---
Evaluation completed. Please go to "Notes" then click on "Assessments and Notes" (bottom left corner of screen). Then select appropriate discipline tab on top of screen.
--- NOTE | 2016-09-14 18:52 | NUR ---
POD 2 Pt ambulated in hallway with PT FWW this afternoon. Tolerated well. Up to BR with SBA FWW. Pt c/o mild headache that she states is always there. Medicated with last dose of IV Tylenol. Care conts
[2016-09-15] MEDS: Heparin 5,000 Unit/mL Inj SUBQ SCH ×3 (00:39→15:32)
--- NOTE | 2016-09-15 03:27 | NUR ---
Mobility Up and moving with FWW and SBA; ambulated in hallway, attended to self care in BR at HS. Denies pain. Tolerated full liquid diet without nausea, passing flatus, positive bowel tones. Using call light appropriately. Pt is sensitive to bed discomfort, declines SCDs for disruption of sleep; educated on risks. Hourly rounding ongoing.
[2016-09-15 05:06] VITALS: BP 135/83; PULSE 96; RESP 18; O2SAT 99
[2016-09-15 07:33] LABS: BASOPHILS % (AUTO) 0.2 % (0-3); EOSINOPHILS % (AUTO) 2.6 % (0-5); MONOCYTES % (AUTO) 33.2 % (4-12); Mean Corpuscular Hemoglobin 26.3 pg (27.0-35.0); Mean Corpuscular Volume 88.8 fL (81-100); NEUTROPHILS % (AUTO) 51.5 % (40-74); Platelet Count 175 bil/L (150-400)
[2016-09-15] MEDS: Insulin LISPRO 300 Unit/3 mL Inj SUBQ SCH ×4 (08:00→22:00)
[2016-09-15 08:37] VITALS: BP 116/58; PULSE 56; RESP 18; O2SAT 97
[2016-09-15] MEDS: FELODIPINE 2.5 MG PO SCH (08:40)
[2016-09-15] MEDS: Dextrose 5% Lactated Ringer's 1,000 ML IV SCH (11:08)
--- NOTE | 2016-09-15 11:13 | NUR ---
Social Work- Multi-Disciplinary Rounds/ Readiness for Discharge Data: EMR reviewed. Pt is on day 3 of hospitalization for right colon cancer, liver mass per H&P. Pt is likely to discharge in 1-2 days. Pt is POD 3 chandra colectomy. Pt discussed with legal service specialist in rounds, Pt's diet is advancing. PT notes indicate that pt may require a walker for discharge. Pt has been up ambulating with walker during this admission. SW met with pt at bedside regarding discharge plan. SW spoke with pt regarding walker. Pt does not have a walker at home and has never obtained one through [facility]. Pt states that [facility] has outpt therapy come to the community occasionally and she would be able to coordinate this at home if she felt she needed more PT. Pt expressed some concern about discharge and needs at home. Pt's meals are provided through [facility]. Pt has a walk in shower that her family can help her clean out for use if needed. SW spent some time with pt normalizing concerns and problem solving. DOUBLE END SEWER also provided the Senior Resource Guide to patient if she feels that she would need some additional assistance. Pt reports that she feels better about discharge after speaking with DOUBLE END SEWER. T/C to Lucrecia Fuchs, pt's DPOA and designated support person, regarding pt's discharge plan. SW left message requesting return call from Lucrecia. Pt spoke with Surgeon regarding walker for discharge. MD agrees that pt will likely need a walker for use at home. MD ordered walker and Rx provided. DOUBLE END SEWER spoke with Krystin at [facility] regarding pt's walker. DOUBLE END SEWER faxed Rx and facesheet to [facility] and Krystin states they will process it and contact patient with delivery information. Requested that DOUBLE END SEWER update [facility] of pt's discharge date and it will be delivered to the hospital prior to discharge. Pt to discharge home to independent living at [facility] with her DPOA Lucrecia to transport home via POV. Pt will obtain walker prior to discharge. SW will continue to follow. Assessment: Pt who is independent at baseline but who requires a walker for mobilization. Plan: DOUBLE END SEWER to work with [facility] to obtain a walker for pt prior to discharge. SW awaits T/C from [facility] Lucrecia regarding nearing discharge. Pt anticipated to discharge home to independent living at [facility] with her DPOA Lucrecia to transport home via POV. Pt will obtain walker prior to discharge. SW will continue to follow. ADAM Baum
--- NOTE | 2016-09-15 12:52 | NUR ---
NUTRITION FOLLOW-UP: ASSESS:86 YO female admitted following laparoscopic right hemicolectomy and liver biopsy. She underwent preoperative nutritional supplementation according to the [facility] protocol; currently POD #2 s/p laparoscopic right hemicolectomy, convalescing appropriately at this time, awaiting ROBF. PMHx:Leukopenia, thrombocytopenia, memory problems, dysphagia, MRSA, hypothyroid, pulmonary infiltrates. DIET:Full liquids, including Impact Advanced Recovery supplement, per [facility] protocol. Pt. has been consistently drinking Impact. She tolerated her full liquid breakfast this morning well, 100% tray. LABS: Reviewed. Cr 0.45, Glu 105. MEDICATIONS: Reviewed. Insulin, MiraLax, Synthroid, Remeron. NUTRITION FOCUSED PHYSICAL ASSESSMENT: GI symptoms / stool: BM x 1 today. Dav: 19. Skin Integrity: Skin is very pale, some lower extremity edema noted. ANTHROPOMETRICS: Current Wt: 53.0 kgBMI: 18.0 kg/m2.Admit weight: 54.02 kg. IBW: 61.4 kg (87.2% IBW) ESTIMATED NEEDS (GI SURGERY, UNDERWEIGHT): Calories: 1605 - 1873 kcal (30 - 35 kcal / kg BW) Protein: 64 - 80 g protein (1.2 - 1.5 g / kg BW) NUTRITION DIAGNOSIS: 1)Increased nutrient needs related to GI surgery, as evidenced by SCOAP protocol in place with supplementation of Impact Advanced Recovery - PERSISTS. INTERVENTION: 1) Continue Impact Advanced Recovery all trays. MONITOR/EVALUATE: Diet advance / tolerance, PO intake, labs, GI/nutrition status. Follow up per moderate nutrition risk guidelines.
[2016-09-15] MEDS: Polyethylene Glycol (PEG) 17 Gm Powder PO SCH (13:44)
--- NOTE | 2016-09-15 14:32 | PROG NOTE ---
[address] [address] PROGRESS NOTE PATIENT: CASSIE BRAY : 1930 MR#: [id number] ADMIT: 09/12/2016 JOB ID: [id number] DATE: 09/15/2016 SUBJECTIVE: Postop day three laparoscopic right colectomy. She is doing well, had a small bowel movement. Her vital signs are within normal limits with a slight bradycardia. On examination her incisions are healing well. Her abdomen is soft. LABORATORIES: White count is 5.7 today. Hematocrit is 37.7. Chemistries within normal limits. Her glucose is 105. IMPRESSION AND PLAN: Doing quite well. Care management and physical therapy have made some recommendations regarding walker on discharge. I will review these. She is hoping not to go home until Saturday, and at this point, we will just follow her, advance her diet slowly, make certain that things are lined up for a safe home discharge and evaluate her again tomorrow.
[2016-09-15 14:45] VITALS: BP 122/57; PULSE 52; RESP 18; O2SAT 96
--- NOTE | 2016-09-15 17:44 | NUR ---
Diet/Skin Pt advanced to soft diet for lunch and dinner and tolerating well. Needs reassurance and menu options. OOB for daily weight this afternoon and noticed pink, blanchable, intact skin around coccyx area. Q2 turns with pillow support at hips to keep skin integrity.
[2016-09-15 20:47] VITALS: BP 123/56; PULSE 56; RESP 18; O2SAT 97
[2016-09-16 00:52] VITALS: BP 162/66; PULSE 74; RESP 18; O2SAT 94
[2016-09-16] MEDS: Heparin 5,000 Unit/mL Inj SUBQ SCH ×3 (01:03→16:35)
[2016-09-16] MEDS: Dextrose 5% Lactated Ringer's 1,000 ML IV SCH ×2 (03:48→20:28)
[2016-09-16 04:35] VITALS: BP 98/58; PULSE 56; RESP 18; O2SAT 96
--- NOTE | 2016-09-16 05:46 | NUR ---
GI / mobility Continues with multiple soft, loose bowel movements through night; occasionally comes on too quickly to get to BR. Appropriate with call light use and slow and steady when up with FWW. Hourly rounding ongoing.
[2016-09-16] MEDS: Insulin LISPRO 300 Unit/3 mL Inj SUBQ SCH ×4 (08:00→21:50)
[2016-09-16] MEDS: FELODIPINE 2.5 MG PO SCH (09:04)
--- NOTE | 2016-09-16 10:07 | NUR ---
[facility] signed Guillermina Sharp HOUSING ASSISTANT PROPERTY MANAGER
--- NOTE | 2016-09-16 11:19 | NUR ---
Social Work- Multi-Disciplinary Rounds Pt discussed with motorcoach operator. Pt is POD 4 chandra colectomy. Pt's new walker is at bedside. No additional social work needs identified in rounds. SW has met pt's family and explained discharge plan of returning home. All updated and agreeable to plan. Guillermina Sharp MSW
[2016-09-16] MEDS: Polyethylene Glycol (PEG) 17 Gm Powder PO SCH (11:33)
[2016-09-16 13:03] VITALS: BP 105/63; PULSE 59; RESP 18; O2SAT 98
--- NOTE | 2016-09-16 13:46 | PROG NOTE ---
[address] [address] PROGRESS NOTE PATIENT: CASSIE BRAY : 1930 MR#: [id number] ADMIT: 09/12/2016 JOB ID: [id number] DATE: 09/16/2016 SUBJECTIVE: Postop day four laparoscopic right hemicolectomy and laparoscopic liver biopsy. She remains afebrile, stable vital signs. She has had multiple loose stools including nighttime incontinence in the bed. She has not had a bowel movement since awakening this morning. She is tolerating soft food. Her vital signs have been rock stable. Her abdomen is soft, her incision is without sign of infection. There are no new labs today. IMPRESSION AND PLAN: She is doing quite well, needing no intravenous narcotics for pain control. She is on her p.o. medications. I have had a lengthy discussion with her and her daughter and son-in-law today regarding discharge. I think given the loose stools and the incontinence at night, I would like to check a stool specimen for C. difficile, though I suspect this is simply related to her right hemicolectomy. I anticipate that she will be medically stable for discharge tomorrow and discharge planning has been involved.
--- NOTE | 2016-09-16 15:22 | NUR ---
Activity/GI Patient reports having diarrhea multiple times overnight and continues to have incontinence of liquid stool during this shift. C-Diff PCR ordered and awaiting sample. Patient reports her stomach feels better now than earlier in this shift. States stomach discomfort this AM was related to taking Tylenol without food. Paged about getting order for PRN Tylenol instead of scheduled for patient's pain. Ambulating independently to the bathroom and in the hallway with the front wheeled walker. Denies any discomfort/pain. Able to walk one lap around the unit. Addendum: 09/16/16 at 1605 by BRIAN RANGEL RN Patient's stool was noticed to have a red tint to it. Talked with Dr. Stone about guiacing stool, and he states it will most likely be guiac positive and it isn't an abnormal finding. Continuing to assess for changes in stool pattern.
[2016-09-16 21:09] VITALS: BP 117/63; PULSE 99; RESP 18; O2SAT 98
[2016-09-17] MEDS: Heparin 5,000 Unit/mL Inj SUBQ SCH ×2 (01:15→10:38)
--- NOTE | 2016-09-17 04:58 | NUR ---
Mobility Continues to be stable and independent in room. Denies significant pain. Hourly rounding ongoing.
[2016-09-17 07:01] VITALS: BP 118/70; PULSE 89; RESP 16; O2SAT 97
--- NOTE | 2016-09-17 07:48 | PROG NOTE ---
[address] [address] PROGRESS NOTE PATIENT: CASSIE BRAY : 1930 MR#: [id number] ADMIT: 09/12/2016 JOB ID: [id number] DATE: 09/17/2016 SUBJECTIVE: The patient is seen in followup. She is doing well. She has no pain and is not even requesting Tylenol anymore. She has no nausea. Her appetite remains diminished but she is eating. She is ambulating but remains deconditioned. She states that her stools were better yesterday in that she did not get woken up as much overnight. OBJECTIVE: Temperature 37.0, pulse 89, blood pressure 118/70, saturation 97% on room air. In general, she is resting in bed, in no acute distress. Chest is clear. Heart: Regular rate and rhythm. No murmurs. Abdomen is soft, flat, nondistended. Her incisions are clean with no erythema. Bowel tones are present. ASSESSMENT/PLAN: An 86-year-old woman, postoperative day five status post laparoscopic right hemicolectomy and liver biopsy for near obstructing right colon cancer causing iron deficiency anemia. She is doing well clinically. I think she can be discharged from the hospital today. Prior to discharge, I will have Call Or Contact Centre Operator see her and evaluate for physical therapy. She lives at [facility] which has assisted-living facilities, so hopefully that will not be a big obstacle. She will follow up with me in the surgery clinic either at the end of this week or early next week.
[2016-09-17] MEDS: Insulin LISPRO 300 Unit/3 mL Inj SUBQ SCH ×2 (08:00→12:42)
[2016-09-17] MEDS: FELODIPINE 2.5 MG PO SCH (10:38)
--- NOTE | 2016-09-17 11:07 | NUR ---
Social Work: Readiness for Discharge/Multi-Disciplinary Rounds D: EMR reviewed. Pt is on day 5 of hospitalization. Pt discussed with counterintelligence specialist. Pt is POD5 chandra colectomy. Pt's new walker is at bedside. No additional social work needs identified in rounds. SW has met pt's family and explained discharge plan of returning home. All updated and agreeable to plan. SW will continue to follow. A: Pt who is independent at baseline P: Pt likely to return home today via POV. No discharge needs identified in rounds. Pt and family agreeable to return home. SW will continue to follow. ADAM Ramos Addendum: 09/17/16 at 1353 by COLETTE LEUNG SW spoke with pt's RN regarding pt's and MD concern for pt having HH PT 2-3/week. SW received MD order for HH. CRISTIAN requested RN to have MD complete F2F. SW will choice pt for HH and provide follow-up note. As of 09/17, PT recommends HHPT 2-3/week as of 1100. Colette Leung Addendum: 09/17/16 at 1540 by COLETTE LEUNG CRISTIAN met with pt and family regarding HH and provided choicelist. Pt chose [facility] (pt's insurance is contracted with [employer]). CRISTIAN placed referral and provided access. Kenny from [facility] met with family. CRISTIAN faxed F2F to [facility]. ADAM Ramos
[2016-09-17] MEDS: Dextrose 5% Lactated Ringer's 1,000 ML IV SCH (13:08)
--- NOTE | 2016-09-17 13:15 | PCM.DISURG ---
Surgical Discharge Instruction Date of Service Sep 17, 2016 Dates of Hospitalization Date of Hospital Admission Sep 12, 2016 at 17:27 Providers Admitting Physician: Raymond Desai MD Primary Care Physician: Zoe Sheth Attending Physician: Raymond Desai MD Discharge Diagnosis Discharge Diagnosis Right colon cancer, iron deficiency anemia Post Operative diagnosis Same Diet Discharge Diet: No restrictions Activity Discharge Activity-General: No lifting >15 pounds for 2 weeks Dressing and Incisional Care Hygiene: May shower Follow Up Plan Follow Up Plan With Dr. Desai in surgery clinic in 1 week Call your provider for: Fever (over 101.5), Vomiting, Discharge @ incision, pus discharge Raymond Desai MD Sep 17, 2016 13:15
[2016-09-17] MEDS ORDERED: Acetaminophen PO (13:17)
--- NOTE | 2016-09-17 15:40 | NUR ---
Social Work: Discharge D: EMR reviewed. Pt is on day 5 of hospitalization. Pt discussed with assistant press operator. Pt is POD5 chandra colectomy. Pt's new walker is at bedside. CRISTIAN received MD order for pt to return to [facility] with PT 2-3x/week. SW met with pt and family and provided choicelist. Pt chose [facility] - pt's insurance is contracted with [facility]. SW sent referral to [facility] and gave access. F2F faxed to [facility]. A: Pt who is independent at baseline P: Pt likely to return home today via POV and open with [facility] for PT 2-3x/week. Pt and family agreeable to return home. SW will continue to follow. ADAM Ramos
[2016-09-17 16:00] VITALS: BP 117/58; PULSE 58; RESP 17; O2SAT 100
--- NOTE | 2016-09-17 17:40 | PCM.DC.SUR ---
Discharge Summary Date of Service: Sep 17, 2016 Date of Hospital Admission: Sep 12, 2016 at 17:27 Date of Discharge: September 17, 2016 Brief History and Physical: 86-year-old woman who has had fairly severe iron deficiency anemia, and has required 6 units of packed red blood cells of the past several months. She underwent colonoscopy by Dr. Sterling, which demonstrated a nearly obstructing friable lesion in the ascending colon, which could not be traversed with the colonoscope. 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 She had a CT of the chest, abdomen and pelvis which demonstrated a small indeterminate hypodensity in the left hepatic lobe, thickening of the ascending colon near the cecum, with probable lymph node positivity in the mesocolon. She underwent preoperative nutritional supplementation according to the [facility] protocol. She did not undergo bowel preparation. Her preoperative albumin was 3.5. After discussion of risks and benefits, she agreed to proceed with laparoscopic right hemicolectomy and liver biopsy. Hospital Course: The patient was taken to the operating room where she underwent an uncomplicated laparoscopic right hemicolectomy with primary anastomosis. The patient tolerated the procedure well and recovered from a general anesthetic in the PACU. She was then transferred to the general surgery miller for intensive nursing care and observation. Over the course of the ensuing hospital stay the patient's diet was systematically advanced as tolerated as her bowel function returned. She was transitioned to an IV only pain regimen to PO pain meds with maintenance of excellent pain control. She resumed normal and spontaneous bladder function. She did require sessions with physical therapy to ensure she was properly ambulating and therefore has been discharged with Rx for a walker. The patient otherwise had no acute issues while in the hospital. She remained hemodynamically normal and had minimal complaints. Ms. Johansen and her family were given strict return precautions and post-operative education. By the date of discharge the patient had met or exceeded all criteria for a safe discharge to home. ([Protopic Oint 0.1%]) 1 TOPICAL BID (Reported) ([Acetaminophen]) 325 MG TABLET 975 MG PO Q6 PRN PRN For Pain Aspirin (Aspirin) 81 Mg Tablet 81 MG PO DAILY (Reported) Estradiol (Estrace) 42.5 Gm Cream.appl 1 G VG SATURDAY (Reported) INSERT 1 GRAM VAGINALLY TWICE A WEEK Felodipine ER (Felodipine ER) 2.5 Mg Tab.er.24h 2.5 MG PO DAILY (Reported) Ferrous Sulfate (Ferrous Sulfate) 325 Mg Tablet 650 MG PO BID (Reported) Furosemide (Furosemide) 20 Mg Tab 20 MG PO DAILY (Reported) Hydrocodone-Acetaminophen 5-325 mg (Hydrocodone-Acetaminophen 5-325 mg) 1 Each Tablet 1-2 TABLET PO QID PRN PRN For Pain Ketoconazole (Ketoconazole) 120 Ml Shampoo 120 ML TP DAILY PRN PRN prn (Reported ) APPLY TOPICALLY EVERY DAY TO AFFECED AREA(S). Ketoconazole (Ketoconazole) 15 Gm Cream..g. 15 GM TP DAILY (Reported) Levothyroxine (Levothyroxine) 75 Mcg Tablet 75 MCG PO DAILY (Reported) Lovastatin (Lovastatin) 40 Mg Tablet 20 MG PO QDWEVENING MEAL (Reported) Mirtazapine (Mirtazapine) 15 Mg Tablet 15 MG PO HS (Reported) Nadolol (Nadolol) 20 Mg Tablet 40 MG PO QAM (Reported) Nadolol (Nadolol) 20 Mg Tablet 20 MG PO HS (Reported) Dread Hernandez MD Sep 17, 2016 17:40
--- NOTE | 2016-09-17 18:38 | NUR ---
Discharge Pt DC'd home to [facility] living at 1655 with son and daughter. Teaching performed throughout day on wound care, signs of infection, bowel monitoring, activity with fall precautions and appointment schedule for follow up. Family and pt both able to teach back the plan, signs of infection/constipation to watch for and scheduled appointments. [facility] set up for PT.
--- NOTE | 2016-09-20 09:31 | PATH ---
SURGICAL PATHOLOGY Attending Physician:Liban Jones CASE STATUS: Signed Out PATIENT NAME: CASSIE BRAY PID: [id number] : 1930 DATE COLLECTED:09/12/2016 00:00 SPECIMEN: 1: Liver, Needle Biopsy 2: Colon, Segment Resection for Tumor CLINICAL HISTORY: 1). LIVER BIOPSY 2). RIGHT COLON FINAL DIAGNOSIS: 1.LIVER, LAPAROSCOPIC BIOPSY: BENIGN BILE DUCT HAMARTOMA / [place] COMPLEX. NEGATIVE FOR CARCINOMA. 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: Specimen: Right Colon Procedure: Laparoscopic right hemicolectomy Tumor Site: Cecum Tumor Size: 5.2 x 4.8 x 0.9 cm Macroscopic Tumor Perforation: Not present Histologic Type: Adenocarcinoma with medullary features (supporting immunohistochemistry studies were performed on this patient's previous biopsy ([id number]; 09/04/16)) Histologic Grade: Cytologically high grade / moderately to poorly differentiated Microscopic Tumor Extension: Tumor invades through the muscularis propria into the pericolorectal tissues Margins: Negative for tumor Proximal Margin: 5.5 cm Distal Margin: 3.0 cm Mesenteric / Radial Resection Margin: 4.2 cm Treatment Effect: Not identified Lymph-Vascular Invasion: Suspicious foci present Perineural Invasion: Not identified Tumor Deposits: Not identified Pathologic Staging (AJCC 7th ed., 2010) TNM Descriptors: Primary Tumor: pT3 Regional Lymph Nodes: pN1a Number of Lymph Nodes Examined: 15 Number of Lymph Nodes Involved: 1 Distant Metastasis: Not applicable Additional Pathologic Findings: - Terminal ileum and appendix with no histomorphologic abnormality - 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 (1) The specimen consists of a fragment of ceballos-white solid rubbery glistening tissue (0.8 x 0.4 x 0.1 cm). Section code: (1A) anti-tissue. Specimen is entirely submitted. (2) The specimen consists of terminal ileum (length-3.6 cm, proximal diameter-1.6 cm), ileocecal valve, cecum and ascending colon (length-9.8 cm, distal diameter-3.7 cm), with attached appendix (length-2.2 cm, diameter-0.4 cm), and attached mesentery (up to 7.3 cm in depth). The resection margins are received stapled. The mucosa is greenwood smooth, and shiny with normal folds and focally flat areas. The ascending colon contains a greenwood-white solid rubbery polypoid almost completely circumferential mass (5.2 x 4.8 x 0.9 cm). The mass is less than 0.1 cm from the serosa, 5.5 cm from the proximal, 3.0 cm from the distal, and 4.2 cm from the radial resection margins. The mass is 2.0 cm distal of the ileocecal valve and extends through the colon wall and into the mesentery. No other nodules, masses or lesions are identified. The appendix is pale greenwood and unremarkable. Multiple lymph nodes (0.1 x 0.1 x 0.1 cm-1.8 x 1.5 x 1.1 cm) are identified. Ink code: black-resection margin; blue-serosa. Section code: (2A) proximal resection margin, longitudinally sectioned, operations support representative; (2B) distal resection margin, longitudinally sectioned, operations support representative; (2C) radial resection margin, operations support representative; (2D) mass with serosa, serially sectioned, operations support representative; (2E-2I) mass, operations support representative; (2J) appendix, operations support representative; (2K-2M) multiple intact lymph nodes; (2N-2O) one lymph node, serially sectioned. 09/13/16 JM MICRO DESCRIPTION: See diagnosis. ICD-9 CODES: CPT CODES: 1: 20081 2: 61475 Electronically Signed Out Karina Jones MD [facility] [address], [place] [address] Technical component performed at [facility] [address], [address]
== END 2016-09-17 16:55 | disposition home health service (06) | DRG 331 ==
LOC: SAS 11:10 → OSC 17:27
PROVIDERS: ADMIT Student in an Organized Health Care Education/Training Program; ATTEND Student in an Organized Health Care Education/Training Program
PROC: 0FB24ZX Excision of Left Lobe Liver, Percutaneous Endoscopic Approach, Diagnostic (ICD-10-PCS; 2016-09-12)
PROC: 0DTK4ZZ Resection of Ascending Colon, Percutaneous Endoscopic Approach (ICD-10-PCS; principal; 2016-09-12 12:45)
DX: C18.2 Malignant neoplasm of ascending colon (principal); G47.33 Obstructive sleep apnea (adult) (pediatric); R16.0 Hepatomegaly, not elsewhere classified; I10 Essential (primary) hypertension; E78.5 Hyperlipidemia, unspecified; E03.9 Hypothyroidism, unspecified; D50.0 Iron deficiency anemia secondary to blood loss (chronic)